=== PATIENT | male | born 1950 | race Caucasian/White ===

== ENCOUNTER 2023-08-20 10:38 | Observation (INO) ==
--- NOTE | 2023-08-05 10:03 | PAT Medication Instructions ---
Medication Instructions Date of Service August 05, 2023 Home Medications acetaminophen 650 mg tablet,extended release 650 mg PO Q8H aspirin 81 mg capsule 81 mg PO HS carbidopa 50 mg-levodopa 200 mg-entacapone 200 mg tablet 1 tab PO TID cholecalciferol (vitamin D3) 25 mcg (1,000 unit) capsule (Vitamin D3) 25 mcg PO HS diclofenac sodium 75 mg tablet,delayed release 75 mg PO BID finasteride 5 mg tablet 5 mg PO QAM gabapentin 300 mg capsule 300 mg PO BID loratadine 10 mg capsule 10 mg PO DAILY PRN Allergy Symptoms metformin 500 mg tablet 500 mg PO BID metoprolol succinate 25 mg tablet,extended release 24 hr 25 mg PO QAM multivitamin with minerals-folic acid 400 mcg-lycopene 370 mcg tablet (One-A-Day Men's 50 Plus) 1 tab PO QAM rosuvastatin 10 mg tablet 10 mg PO HS tamsulosin 0.4 mg capsule 0.4 mg PO QAM ASK your surgeon for instructions diclofenac sodium 75 mg tablet,delayed release 75 mg PO BID DO NOT take the morning of surgery loratadine 10 mg capsule 10 mg PO DAILY PRN Allergy Symptoms metformin 500 mg tablet 500 mg PO BID multivitamin with minerals-folic acid 400 mcg-lycopene 370 mcg tablet (One-A-Day Men's 50 Plus) 1 tab PO QAM Take morning of surgery With a small sip of water, OTHERWISE NOTHING TO EAT OR DRINK AFTER MIDNIGHT: acetaminophen 650 mg tablet,extended release 650 mg PO Q8H carbidopa 50 mg-levodopa 200 mg-entacapone 200 mg tablet 1 tab PO TID finasteride 5 mg tablet 5 mg PO QAM gabapentin 300 mg capsule 300 mg PO BID metoprolol succinate 25 mg tablet,extended release 24 hr 25 mg PO QAM tamsulosin 0.4 mg capsule 0.4 mg PO QAM Take evening before surgery acetaminophen 650 mg tablet,extended release 650 mg PO Q8H aspirin 81 mg capsule 81 mg PO HS carbidopa 50 mg-levodopa 200 mg-entacapone 200 mg tablet 1 tab PO TID cholecalciferol (vitamin D3) 25 mcg (1,000 unit) capsule (Vitamin D3) 25 mcg PO HS gabapentin 300 mg capsule 300 mg PO BID loratadine 10 mg capsule 10 mg PO DAILY PRN Allergy Symptoms (if needed) metformin 500 mg tablet 500 mg PO BID rosuvastatin 10 mg tablet 10 mg PO HS Other Notes If you have any questions please call us at [phone] or [phone] or [phone] or [phone]
--- NOTE | 2023-08-06 12:45 | Anesthesiology Consultation ---
Date of Service August 06, 2023 Assessment & Plan (1) Encounter for pre-operative examination: - Check BSG AM DOS - Infectious disease screening: Per assessment on 08/06/23: No known infectious disease contacts or current infectious disease symptoms. No noted Covid positive test result in past 90 days. - Outpatient joint assessment: Pt currently scheduled for inpatient pathway. If surgeon requests review for outpatient joint pathway, patient is not recommended candidate for outpatient joint program from anesthesia standpoint. Chart Review Chart Review: Acceptable Risk for Surgery and Patient seen in Pre Admission Testing Teaching & Discussion Pre-Anesthesia Teaching/Discussion Notes: Instructed NPO after midnight before surgery,except medications with 15 cc of water. Medication instructions provided according to the PAT guidelines. History Surgery Operation Date: 08/20/23 08:50 Proposed Procedures p Left Total Knee Arthroplasty - Casimiro Mccarthy MD Height/Weight Height: 5 ft 6 in Weight: 104.1 kg Allergies Allergy/AdvReac Type Severity Reaction Status Date / Time ciprofloxacin Allergy Intermediate Aches, Verified 08/05/23 12:01 "cannot stand" lisinopril Allergy Mild rash and Verified 07/30/23 08:35 cough propranolol Allergy Mild rash and Verified 07/30/23 08:35 cough Medications Home Medications Medication Instructions Recorded Confirmed Last Taken acetaminophen 650 mg 650 mg PO Q8H 07/19/23 07/30/23 Unknown tablet,extended release aspirin 81 mg capsule 81 mg PO HS 07/19/23 07/30/23 Unknown carbidopa 50 mg-levodopa 200 1 tab PO TID 07/19/23 07/30/23 Unknown mg-entacapone 200 mg tablet cholecalciferol (vitamin D3) 25 25 mcg PO HS 07/19/23 07/30/23 Unknown mcg (1,000 unit) capsule (Vitamin D3) diclofenac sodium 75 mg 75 mg PO BID 07/19/23 07/30/23 Unknown tablet,delayed release finasteride 5 mg tablet 5 mg PO QAM 07/19/23 07/30/23 Unknown gabapentin 300 mg capsule 300 mg PO BID 07/19/23 07/30/23 Unknown lancing device with lancets kit 07/19/23 07/19/23 Unknown loratadine 10 mg capsule 10 mg PO DAILY PRN Allergy Symptoms 07/19/23 07/30/23 Unknown metformin 500 mg tablet 500 mg PO BID 07/19/23 07/30/23 Unknown metoprolol succinate 25 mg 25 mg PO QAM 07/19/23 07/30/23 Unknown tablet,extended release 24 hr multivitamin with minerals-folic 1 tab PO QAM 07/19/23 07/30/23 Unknown acid 400 mcg-lycopene 370 mcg tablet (One-A-Day Men's 50 Plus) rosuvastatin 10 mg tablet 10 mg PO HS 07/19/23 07/30/23 Unknown tamsulosin 0.4 mg capsule 0.4 mg PO QAM 07/19/23 07/30/23 Unknown Past Medical History Medical History (Updated 08/06/23 @ 12:59 by Tana Falcon) BPH (benign prostatic hyperplasia) Degenerative arthritis of knee, bilateral Diabetes mellitus, type 2 Diverticular disease History of kidney stones Hyperlipidemia Hypertension Parkinson disease Sleep apnea CPAP (compliant) Exercise / Class Metabolic Activity III < 4 Walking/Shop/Light housework (uses walker) Past Family History Family History (Updated 07/30/23 @ 08:48 by Shu Pugh, MENA) Other No family history of adverse response to anesthesia Past Surgical History Surgical History (Updated 07/30/23 @ 08:47 by Shu Pugh, MENA) History of colon resection 2010--13 inches removed due to diverticular disease/with umbilical hernia re pair @ [facility] History of colonoscopy History of left inguinal hernia repair History of lithotripsy x4 History of prostate biopsy History of tonsillectomy History of tooth extraction History of wisdom tooth extraction Status post cystoscopy with ureteral stent placement Past Anesthesia History No Hx of Anesthesia Complications and No Family Hx of Anesthesia Complications History of PONV No Hx of PONV and No Hx of Motion Sickness Social History Smoking Status: Former smoker Do You Dip or Chew Tobacco: No Smoking End Date: Quit 40 years ago Hx Alcohol Use: No Hx Substance Use: No substance use type: does not use Review of Systems Patient denies chest pain, shortness of breath, fever, chills, cough, wheezing, palpitations. Physical Exam Vital Signs VITALS BP 154/82 P 73 TEMP 98.0 SP02 97%RA RESP 18 PHYSICAL Mildly decreased cervical extension range of motion. Full TMJ range of motion. TMD 4 finger breaths Mallampati Score 2 Dentition: missing sides/molars Lungs: clear throughout to auscultation Cardiac: regular rate and rhythm, no murmurs noted Spine: normal Carotid arteries: negative bruit Extremities: no LE edema Lab Results Anesthesia Preop Results Results Anesthesia Widget: WBC 7.42 K/ul (4.8-10.8) 08/06/23 Hgb 13.8 g/dl (14.0-18.0) L 08/06/23 Hct 39.8 % (42.0-52.0) L 08/06/23 Plt 277 K/uL (130-400) 08/06/23 PT 10.9 Seconds (9.0-12.0) 08/06/23 PTT 25.6 Seconds (21.0-31.0) 08/06/23 INR 1.0 (0.9-1.1) 08/06/23 Blood Type A Positive 08/06/23 Antibody Screen NEGATIVE 08/06/23 Testing Laboratory Results 07/01/23 SODIUM 138 POTASSIUM 4.2 CHLORIDE 101 CO2 27 BUN 21 CREATININE 1.3 GLUCOSE 106 HGBA1C 6.3% Electrocardiogram Date: 08/06/23 NSR at 68bpm. LAFB. Chest X-Ray Date: 08/06/23 FINDINGS: No lines and tubes are seen. Calcified aortic knob is seen. The lungs are clear. No evidence of pleural effusion or pneumothorax. IMPRESSION: No acute chest disease.
--- NOTE | 2023-08-17 11:45 | History & Physical Report ---
Date of Service August 17, 2023 Assessment & Plan (1) Degenerative arthritis of knee, bilateral: 73-year-old gentleman with multiple medical comorbidities including diabetes, elevated cholesterol, Parkinson's disease with advanced left knee DJD. He is got severe deformity to his knee. Is got a point where he can hardly walk. He has failed conservative measures. He like to proceed with knee replacement. Plan: We discussed treatment options. He would like to have his knee replaced. Certainly there is nothing else that can help this gentleman. He certainly has several comorbidities but the only way to get him up walking again is replacement surgery. He like to proceed. The risks and benefits of total knee replacement were explained and he understands. We will proceed along that course. Will need to use a stem in his tibia as well as augments medially. He is planning on being discharged to go home with his 's assistance. He will use a home health program. Will use aspirin for DVT prophylaxis. History of Present Illness Chief Complaint: . Left knee pain discomfort and limited ambulatory ability. Primary Care Provider: NO PCP . Patient is 73-year-old gentleman from [place] who presents for surgical treatment of his left knee. He has several year history of increasing left knee pain discomfort and deformity that is gotten markedly worse over time. He is got to the point where he can hardly even walk. He is got global pain. Is been using a walker for the past year. He seen Dr. Titus over [facility] area had an injection which did not help at all. He wears a brace with minimal relief. He is having difficulty walking due to the pain discomfort stiffness and instability. He would like to have this knee fixed. Allergies Allergy/AdvReac Type Severity Reaction Status Date / Time ciprofloxacin Allergy Intermediate Aches, Verified 08/05/23 12:01 "cannot stand" lisinopril Allergy Mild rash and Verified 07/30/23 08:35 cough propranolol Allergy Mild rash and Verified 07/30/23 08:35 cough Home Medications Medication Instructions Recorded Confirmed Type acetaminophen 650 mg 650 mg PO Q8H 07/19/23 07/30/23 History tablet,extended release aspirin 81 mg capsule 81 mg PO HS 07/19/23 07/30/23 History carbidopa 50 mg-levodopa 200 1 tab PO TID 07/19/23 07/30/23 History mg-entacapone 200 mg tablet cholecalciferol (vitamin D3) 25 25 mcg PO HS 07/19/23 07/30/23 History mcg (1,000 unit) capsule (Vitamin D3) diclofenac sodium 75 mg 75 mg PO BID 07/19/23 07/30/23 History tablet,delayed release finasteride 5 mg tablet 5 mg PO QAM 07/19/23 07/30/23 History gabapentin 300 mg capsule 300 mg PO BID 07/19/23 07/30/23 History lancing device with lancets kit 07/19/23 07/19/23 History loratadine 10 mg capsule 10 mg PO DAILY PRN Allergy Symptoms 07/19/23 07/30/23 History metformin 500 mg tablet 500 mg PO BID 07/19/23 07/30/23 History metoprolol succinate 25 mg 25 mg PO QAM 07/19/23 07/30/23 History tablet,extended release 24 hr multivitamin with minerals-folic 1 tab PO QAM 07/19/23 07/30/23 History acid 400 mcg-lycopene 370 mcg tablet (One-A-Day Men's 50 Plus) rosuvastatin 10 mg tablet 10 mg PO HS 07/19/23 07/30/23 History tamsulosin 0.4 mg capsule 0.4 mg PO QAM 07/19/23 07/30/23 History Past Med/Surg History Medical History BPH (benign prostatic hyperplasia) Degenerative arthritis of knee, bilateral Diabetes mellitus, type 2 Diverticular disease History of kidney stones Hyperlipidemia Hypertension Parkinson disease Sleep apnea CPAP (compliant) Surgical History History of colon resection 2010--13 inches removed due to diverticular disease/with umbilical hernia repair @ [facility] History of colonoscopy History of left inguinal hernia repair History of lithotripsy x4 History of prostate biopsy History of tonsillectomy History of tooth extraction History of wisdom tooth extraction Status post cystoscopy with ureteral stent placement Family History Other No family history of adverse response to anesthesia Social History Smoking Status: Former smoker Tobacco Type: Cigarettes Second Hand Exposure: No; Do You Dip or Chew Tobacco: No; Hx Alcohol Use: No Hx Substance Use: No Preferred Language: Hungarian Communication Ability: Effective Beautician Apprentice Required: No Beliefs That Will Affect Care: None Current Living Situation: Spouse Feels Safe at Home: Yes Assistive Devices: CPAP, Glasses and Walker Review of Systems All systems reviewed & are unremarkable except as noted in HPI & below. Physical Exam . Physical examination reveals a pleasant elderly male. Comes in in a wheelchair. Examination left knee reveals marked varus alignment to his knee. He has difficulty walking to all even with a walker. Days got tenderness over the medial joint line. His knee collapses into varus with weightbearing. Small knee effusion. Got a pretty stiff knee with about a 10 degree flexion contracture and only bend about 90 to 95 degrees. There is no gross otherwise instability. No particular pain with hip motion. Constitutional WD/WN, vitals as above Neck trachea midline, no thyromegaly Respiratory normal respiratory effort, lungs clear to auscultation Cardiovascular RRR, no murmur, no edema Gastrointestinal (Abdomen) normal bowel sounds, soft, nontender, no hepatosplenomegaly Results & Data Results & Data Laboratory Results . Diagnostic Findings . X-rays left knee were reviewed. Shows advanced left knee medial compartment DJD. Is got complete loss of medial joint space. Is got destruction of the med ial tibial plateau about a centimeter a centimeter and a half. PG Care Time/CCT Total # of Minutes Spent Total Time Spent with Patient: Total time spent is greater than 50% in coordination of care (as documented) at patient's floor/unit and/or counseling patient: Coding Level of Care Code None Diagnoses Degenerative arthritis of knee, bilateral M17.0
[~2023-08-20 10:38] MED LIST: ACETAMINOPHEN 500 MG TAB PO SCH; BUPIVACAINE 0.5 % 5 MG/1 ML PF 10ML VIAL ONE; BUPIVACAINE LIPOSOME/PF 266 MG, BUPIVACAINE/EPINEPHRINE 50 ML, SODIUM CHLORIDE 0.9% PF ... INFIL SCH; CeleBREX 200 MG CAP PO SCH; FAMOTIDINE 20 MG TAB PO SCH; LR 500ML BOLUS, THEN 15ML/HR IV SCH; LR 60ML/HR IV SCH; METOCLOPRAMIDE HCL 10 MG TABLET PO SCH; ROPIVACAINE 0.5% 5 MG/ML 30 ML VIAL ONE; TRANEXAMIC ACID / 0.7% NACL 1,000 MG/100 ML BAG IV SCH; ceFAZolin 2000MG 2,000 MG/15 ML SYR IV SCH
--- NOTE | 2023-08-20 11:04 | History & Physical Bridge Note ---
Date of Service August 20, 2023 History & Physical Bridge Note I have examined the patient, reviewed the History & Physical and in the interval since the performance of the History & Physical I have noted the following changes of clinical significance: no changes noted
[2023-08-20] MEDS ORDERED: DEXAMETHASONE SOD INJ 4 MG/ML VIAL IV STA (11:22)
[2023-08-20] MEDS ORDERED: dexAMETHasone 8 MG in SYRINGE 0 ML IV ONE (11:30)
[2023-08-20] MEDS ORDERED: MIDAZOLAM HCL 1 MG/ML 2ML VIAL ONE (12:11)
[2023-08-20] MEDS ORDERED: PROPOFOL IV EMULSION 10 MG/ML 20 ML VIAL IV ONE ×2 (12:12→15:05)
[2023-08-20] MEDS ORDERED: BUPIVACAINE/EPINEPHRINE 0.25% 1:200,000 30 ML VIAL ONE (13:18)
[2023-08-20] MEDS ORDERED: VANCOMYCIN HCL 1000MG/20ML VIAL ONE (13:18)
[2023-08-20] MEDS ORDERED: SODIUM CHLORIDE 0.9% PF 50 ML VIAL ONE (13:19)
[2023-08-20] MEDS ORDERED: BUPIVACAINE LIPOSOME 1.3% 266 MG/20 ML VIAL ONE (13:19)
[2023-08-20] MEDS ORDERED: ePHEDrine sulfate 50 MG/ML AMP ONE (13:46)
[2023-08-20] MEDS ORDERED: ATROPINE SULFATE 0.1 MG/ML 10ML SYR IV PRN (13:48)
[2023-08-20] MEDS ORDERED: fentaNYL citrate PF 100 MCG/2 ML VIAL IV PRN (13:48)
[2023-08-20] MEDS ORDERED: ePHEDrine sulfate 50 MG/ML AMP IV PRN (13:48)
[2023-08-20] MEDS ORDERED: ONDANSETRON INJ 2 MG/ML 2 ML VIAL ONE (14:10)
[2023-08-20] MEDS ORDERED: PHENYLEPHRINE HCL 10 MG/ML VIAL ONE ×2 (14:17→14:18)
--- NOTE | 2023-08-20 15:48 | Operative Report ---
PG Post Operative Report Pre & Post Diagnosis Operation Date: 08/20/23 12:30 Pre-Op Diagnosis: Left knee degenerative joint disease Post-Op Diagnosis: Left knee degenerative joint disease I identified the patient and participated in the time-out.: Yes Procedure Operation Date: 08/20/23 12:30 Actual Procedures p Left Total Knee Arthroplasty(Left) - Casimiro Mccarthy MD Surgeon Casimiro Mccarthy MD [employer] Farmworker Garrett Jiménez PA-C Estimated Blood Loss 100 Findings Consistent with Post-Op Diagnosis Operative findings were advanced left knee DJD. He had grade 4 [id number] disease in all 3 compartments most severe medially. He had a large bony defect anterior medially about 15 mm. He had erosive changes in the medial femoral condyle and medial tibial plateau. Fixed varus deformity to his knee and a flex ion contracture. Moderate-sized joint effusion. Specimens Left knee sent for pathology Anesthesia Type Spinal MAC Complications none Disposition Accompanied Patient To Recovery: No Indications Patient 73-year-old gent with multiple medical comorbidities as several year history of increasing left knee pain discomfort deformity of the point where he could not even walk. He has a sense almost wheelchair-bound. X-rays show severe left knee DJD with a very large bone loss anterior medially. Treatment options were explained and he elects he with surgical management. Description of Procedure Operative implants consist of: 1 Biomet Vanguard size 67.5 left posterior stabilized femoral component. 2. Biomet Vanguard III 60 tibial implant with a 75 mm tray, 80 x 15 mm stem with a 5 mm offset and a small cruciate wing. 3. 14 mm PS plus polyethylene insert. 4. 31 x 8 all poly patella. The patient was taken the operating, identified, placed on the operating table supine position but all contractors were appropriately padded. IV antibiotics were provided by the anesthesia team. A spinal anesthetic and adductor canal block had been provided in the holding area. A left thigh turn was then placed. Left lower extremities then prepped and draped in usual sterile fashion. The left leg was elevated exsanguinated with use of an Esmarch and the turn was placed at 300 mmHg. An anterior approach left knee was then performed to longitudinal incision centered over the patella. Sharp dissection was carried through subcutaneous tissues down the extensor mechanism. A medial parapatellar arthrotomy incision was made. Some subperiosteal dissection was carried out medially. I did extensive dissection medially and posterior medially to have r eleases medial side. The fat pad was resected from Neath patella tendon. The lateral patellofemoral ligament was released and the patella was subluxated laterally and the knee was flexed. The osteophyte and the ACL and PCL were taken off the intercondylar notch area. The tibia subluxated anteriorly. The tibial eminence was resected. I then reamed up to a size 15. The reamer was left in place. The IM cutting guide was placed and the tibial cut was made to take about 10 mm off the most cartilaginous portion of the medial side. This cut just above the base of the anterior defect medially. Took a fairly large piece off laterally. The tibia was then sized to a size 75. I then prepared the tibia for a 15 mm offset stem with a fives offset and a small cruciate wing. The tibia was assembled and fit nicely in the tibia. Attention drawn the femur. The distal femur during the sharp drop with intramedullary canal was suction. A left 5 degree valgus cutting guide was placed. The distal femoral cutting block was pinned in place. Distal femoral cut was made to take an additional 3 mm bone off distal femur. The femur was then sized to a size 67.5. The AP cutting block was pinned parallel to the epicondylar axis which was 5 degrees of external rotation. The anterior cut, anterior chamfer, posterior cut, posterior chamfer cuts were made. The box cutting guide was placed in just slight lateral box cut was made. The knee was flexed. The remnants of the medial and lateral menisci were excised. The osteophytes taken off the posterior aspect the femur. A trial femoral component was placed. I then trialed the knee with and the 14 mm insert fit most appropriately. There was still a little bit of laxity laterally so I elected to place a PS plus insert. Attention drawn the patella. The patella was cleaned of all soft tissues. Patella thickness measured 20 mm in thickness was cut down to 13. Sized to a size 31 patella. The lug holes were drilled for 31 patella. Lateral osteophytes removed. Patella button was placed. Knee was taken through range of motion patella tracked nicely with no thumbs test. Attention drawn to place the permanent components. All trial components were removed. A bone plug was placed in the distal femur to limit blood loss. A double batch Palacos G cement was mixed. I added 2 additional grams of vancomycin due to this patient's multiple medical comorbidities and the extensiveness of the surgery. A Biomet Vanguard size 67.5 left posterior stabilized femoral component along with a size 75 tibial tray with an 80 x 15 mm offset stem extension and a small cruciate wing followed by a 14 mm posterior stabilized polyethylene plus insert and a 31 x 8 all poly patella then cemented in place. Knee was brought out in full extension till cement hardened. Final cement check was then performed. The pericapsular tissues were injected with total of 100 cc of combination of 20 of Exparel, 30 cc normal saline, 50 cc of quarter percent Marcaine with epinephrine. Patient did receive 1 g tranexamic acid. The tourniquet was then let down for final tourniquet time of 79 minutes. Hemostasis assured use electrocautery. Extensor mechanism then closed with combination 1 PDS suture #1 Vicryl suture in a [id number] fashion. Extensor mechanism checked found to be intact and subcutaneous tissues then closed with 2 Dexon suture in a buried interrupted fashion skin was closed skin ginette. Leg was then cleaned and dried and sterile dressed with Xeroform, 4 fours, sterile cast padding, ABD pad, Gianluca bandage were applied. The patient was then transferred to the recovery room in stable condition. Patient tolerated procedure well and there were no complications. Garrett Jiménez, my physician assistant to the ceo, was present for the entire procedure. His assistance was essential and required for appropriate patient positioning, prepping and draping, surgical exposure, performing the technical details of the operation, placement the implants, closure of the wound, and placement of the sterile bandage. I attest to the content of the Intraoperative Record and any orders documented therein. Any exceptions are noted below.
--- NOTE | 2023-08-20 16:36 | Anesthesiology Progress Note ---
Date of Service August 20, 2023 Anesthesia Post Procedure Vital Signs Vital Signs: Temp Pulse Pulse Resp BP Pulse Ox O2 Del Method 08/20/23 16:30 94 H 20 131/80 97 Nasal Cannula 08/20/23 16:10 89 20 129/71 93 Nasal Cannula 08/20/23 16:00 90 12 115/70 94 Oxymask 08/20/23 16:20 91 H 15 128/71 96 Nasal Cannula 08/20/23 15:50 99 H 17 98/60 L 93 Oxymask 08/20/23 15:46 36.5 C 96 H 13 100/64 94 Oxymask 08/20/23 11:26 36.5 C 70 22 150/85 H 95 Room Air O2 Flow Rate 08/20/23 16:30 2 08/20/23 16:10 2 08/20/23 16:00 3 08/20/23 16:20 2 08/20/23 15:50 6 08/20/23 15:46 6 08/20/23 11:26 Pain Intensity Left Leg: Pain Intensity: 7 Transfer of Care Handoff Completed per policy Notes Mental Status: alert / awake / arousable and participated in evaluation Nausea / Vomiting: adequately controlled Pain: adequately controlled Airway Patency, RR, SpO2: stable & adequate BP & HR: stable & adequate Hydration State: stable & adequate Neuraxial Anesthesia: was administered and sensory block is resolving Anesthetic Complications: no major complications apparent and Pt Satisfied with anesthetic care
--- NOTE | 2023-08-20 16:45 | XRay Report ---
TWO VIEWS LEFT KNEE CLINICAL HISTORY: Postoperative examination. FINDINGS: AP and crosstable lateral portable views of the left knee are obtained. A left knee arthrop lasty is in near anatomic alignment. There is a long tibial stem. There has been undersurface remodel ing of the patella. No acute fracture is seen. There are expected postoperative changes around the kn ee including skin clips, soft tissue edema, and subcutaneous gas. IMPRESSION: Expected postoperative changes status post left knee arthroplasty. No acute fracture is s een. ACT 112: Negative or not required by law. Electronically signed by: Aditya Siddiqui M.D. 08/20/2023 4:43 PM
[2023-08-20] MEDS ORDERED: CARBOHYDRATES FOR HYPOGLYCEMIA PO PRN (17:49)
[2023-08-20] MEDS ORDERED: bisacodyL 10 MG SUPP PR PRN (17:49)
[2023-08-20] MEDS ORDERED: ONDANSETRON INJ 2 MG/ML 2 ML VIAL IV PRN (17:49)
[2023-08-20] MEDS ORDERED: GLUCOSE 40% GEL 15 GM TUBE PO PRN (17:49)
[2023-08-20] MEDS ORDERED: SODIUM CHLORIDE 0.9% 1,000 ML IV SCH (17:49)
[2023-08-20] MEDS ORDERED: GLUCOSE 10 TAB/TUBE PO PRN (17:49)
[2023-08-20] MEDS ORDERED: ALUMINUM/MAGNESIUM SUSP 30 ML UDC PO PRN (17:49)
[2023-08-20] MEDS ORDERED: NALOXONE HCL 0.4 MG/1 ML VIAL/CARP IV PRN (17:49)
[2023-08-20] MEDS ORDERED: PHARMACY GLYCEMIC MGMT CONSULT PRN (17:49)
[2023-08-20] MEDS ORDERED: HYDROmorphone INJ 0.5 MG/0.5 ML SYR IV PRN (17:49)
[2023-08-20] MEDS ORDERED: GLUCAGON FOR INJ 1 MG VIAL SQ PRN (17:49)
[2023-08-20] MEDS ORDERED: LORATADINE 10 MG TAB PO PRN (17:49)
[2023-08-20] MEDS ORDERED: METOCLOPRAMIDE HCL INJ 5 MG/ML 2 ML VIAL IV PRN (17:49)
[2023-08-20] MEDS ORDERED: oxyCODONE HCL IR 5 MG TAB (IMMEDIATE RELEASE) PO PRN (17:49)
[2023-08-20] MEDS ORDERED: DEXTROSE 50% 50 ML SYRINGE IV PRN (17:49)
[2023-08-20] MEDS ORDERED: MAGNESIUM HYDROXIDE SUSP 30 ML UDC PO PRN (17:49)
[2023-08-20] MEDS: CARBIDOPA/LEVODOPA 50/200MG EXT REL TAB PO SCH ×2 (18:16→21:11)
[2023-08-20] MEDS: ENTACAPONE 200 MG TAB PO SCH ×2 (18:17→21:01)
[2023-08-20] MEDS ORDERED: KETOROLAC 30 MG/ML VIAL ONE (18:22)
[2023-08-20] MEDS: ACETAMINOPHEN 500 MG TAB PO SCH ×2 (18:24→21:10)
[2023-08-20] MEDS: KETOROLAC TROMETHAMINE 15 MG/ML VIAL IV SCH ×3 (18:25→23:52)
[2023-08-20] MEDS ORDERED: CHOLECALCIFEROL 1,000 UNITS 25 MCG TAB PO SCH (21:00)
[2023-08-20] MEDS ORDERED: SENNA 8.6 MG TAB PO SCH (21:00)
[2023-08-20] MEDS ORDERED: LANTUS PER UNIT CHARGE SC ONE (21:00)
[2023-08-20] MEDS ORDERED: ROSUVASTATIN CALCIUM 10 MG TAB PO SCH (21:00)
[2023-08-20] MEDS: ASCORBIC ACID 500 MG TAB PO SCH (21:16)
[2023-08-20] MEDS: SENNA 8.6 MG TAB PO SCH (21:16)
[2023-08-20] MEDS: ASPIRIN 81 MG ECTAB PO SCH (21:16)
[2023-08-20] MEDS: GABAPENTIN 300 MG CAP PO SCH (21:16)
[2023-08-20] MEDS: DOCUSATE SODIUM 100 MG CAP PO SCH (21:16)
[2023-08-20] MEDS: INSULIN ASPART PER UNIT CHARGE SC SCH (21:19)
[2023-08-20] MEDS: ceFAZolin 2000MG 2,000 MG/15 ML SYR IV SCH (21:25)
[2023-08-20] MEDS ORDERED: TRANEXAMIC ACID / 0.7% NACL 1,000 MG/100 ML BAG IV SCH (21:45)
[2023-08-21] MEDS ORDERED: INSULIN ASPART PER UNIT CHARGE SC ONE (04:00)
[2023-08-21] MEDS: KETOROLAC TROMETHAMINE 15 MG/ML VIAL IV SCH ×2 (05:07→12:37)
[2023-08-21] MEDS: ceFAZolin 2000MG 2,000 MG/15 ML SYR IV SCH (05:07)
[2023-08-21] MEDS ORDERED: dexAMETHasone 4 MG TAB PO SCH (08:00)
[2023-08-21 08:09] LABS: Hematocrit (blood only) 33.1 % (42.0-52.0); Hemoglobin 11.4 g/dl (14.0-18.0); Mean Corpuscular Hemoglobin 31.7 pg (25.0-34.0); Mean Corpuscular Hgb Conc 34.4 g/dL (32.0-36.0); Mean Corpuscular Volume 91.9 fL (80.0-100.0); Mean Platelet Volume 9.5 fL (9.4-12.4); Platelet Count 252 K/uL (130-400); RDW Coefficient of Variation 13.2 % (11.5-14.5); RDW Standard Deviation 44.7 fL (36.4-46.3)
[2023-08-21] MEDS ORDERED: metFORMIN HCL 500 MG TAB PO SCH (08:30)
[2023-08-21 08:34] LABS: Estimated Average Glucose 131 mg/dl; Hemoglobin A1C 6.2 % (4.5-5.6)
[2023-08-21 08:35] LABS: BUN Creatinine Ratio 20.5 (10-20); Calcium 8.8 mg/dl (8.6-10.3); Creatinine Clr Calc Pharmacy 61.5 ml/min; Est GFR (African American) 70.3 ml/min; Est GFR (Non-African American) 60.6 ml/min; Potassium 4.2 mmol/L (3.5-5.1)
[2023-08-21] MEDS: INSULIN ASPART PER UNIT CHARGE SC SCH ×2 (08:43→12:35)
[2023-08-21] MEDS: ASCORBIC ACID 500 MG TAB PO SCH (08:45)
[2023-08-21] MEDS: ACETAMINOPHEN 500 MG TAB PO SCH ×2 (08:46→13:50)
[2023-08-21] MEDS: ASPIRIN 81 MG ECTAB PO SCH (08:47)
[2023-08-21] MEDS: DOCUSATE SODIUM 100 MG CAP PO SCH (08:48)
[2023-08-21] MEDS: GABAPENTIN 300 MG CAP PO SCH (08:49)
[2023-08-21] MEDS: SENNA 8.6 MG TAB PO SCH (08:50)
[2023-08-21] MEDS ORDERED: MULTIVITAMIN TAB PO SCH (09:00)
[2023-08-21] MEDS ORDERED: MULTIVIT WITH MIN FA LYCOPENE PO SCH (09:00)
[2023-08-21] MEDS ORDERED: [UNRECOGNIZED DRUG - OTHER] PO SCH (09:00)
[2023-08-21] MEDS ORDERED: TAMSULOSIN HCL 0.4 MG CAP PO SCH ×2 (09:00)
[2023-08-21] MEDS ORDERED: METOPROLOL SUCC 25MG EXT REL TAB PO SCH (09:00)
[2023-08-21] MEDS ORDERED: FINASTERIDE 5 MG TAB PO SCH (09:00)
[2023-08-21] MEDS: CARBIDOPA/LEVODOPA 50/200MG EXT REL TAB PO SCH ×2 (10:16→13:49)
[2023-08-21] MEDS: ENTACAPONE 200 MG TAB PO SCH ×2 (10:16→13:50)
--- NOTE | 2023-08-21 13:17 | Surgery Progress Note ---
Date of Service August 21, 2023 Assessment & Plan (1) Status post left knee replacement: Plan: 73-year-old gentleman postop day 1 from left knee replacement doing quite well. Functionally is doing better than he did before surgery. His pain is controlled. He is neurologically intact he is open to go home. Plan: 1. DVT prophylaxis including thigh-high teds, SCDs, aspirin twice a day. 2. PT OT. Weight-bear as tolerated left total knee protocol. 3. Pain control doing okay with current pain regimen. 4. Disposition plan to discharge to home with some home health today. Admission and Anticipated Discharge Date Admission Date: August 20, 2023 Subjective 73-year-old gentleman with underlying Parkinson's he is postop day 1 from a left knee replacement. He is doing quite well. He is having some pain but manageable. He says he is walking better than he did before surgery. Denies any chest pain or shortness of breath. He is open to go home. Physical Exam Physical Exam: Physical exam shows a pleasant middle-age male. He is sitting up in his bedside looks reasonably comfortable. Examination left leg reveals the dressing clean dry and intact he can dorsiflex and plantarflex his foot appropriately. He is neurologically intact. Brisk refill. Respiratory: normal respiratory effort, lungs clear to auscultation Cardiovascular: RRR, no murmur, no edema Gastrointestinal (Abdomen): normal bowel sounds, soft, nontender, no hepatosplenomegaly Results & Data Vital Signs (Past 12 Hours) Vital Signs Temp Pulse Resp BP BP Pulse Ox O2 Del Method 08/21/23 10:58 36.5 C 75 16 130/65 95 Room Air 08/21/23 10:21 CPAP 08/21/23 07:26 36.3 C L 79 16 138/78 95 Room Air 08/21/23 03:28 36.9 C 81 18 120/73 92 BiPAP Laboratory Results Hemoglobin is 11.4. Hematocrit is 33.1. Electrolytes are stable. PG Care Time/CCT Total # of Minutes Spent Total Time Spent with Patient: Total time spent is greater than 50% in coordination of care (as documented) at patient's floor/unit and/or counseling patient: Coding Level of Care Code None Diagnoses Status post left knee replacement Z96.652
--- NOTE | 2023-08-25 14:19 | Discharge Summary ---
Date of Service August 25, 2023 Discharge Data Procedures Performed Operation Date: 08/20/23 12:30 Actual Procedures p Left Total Knee Arthroplasty(Left) - Casimiro Mccarthy MD Hospital Course (1) Status post left knee replacement: This is a 73 year old patient admitted on 08/20/23 and underwent total knee arthroplasty. He tolerated the procedure well and there were no complications. Transferred to the PACU post op and later to the orthopedic floor for further care. He was given ancef for antibiotic prophylaxis. He was also given JB stockings, SCDs, and aspirin for DVT prophylaxis. Hemoglobin, hematocrit, and vital signs were monitored during his hospital stay and remained stable. Did not require any blood transfusions. There were no complications during his hospital stay. By post op day #1 the patient was tolerating a diabetic diet, pain was reasonably controlled with oral pain medicine, and he was participating in physical therapy. On post op day #1 the patient was discharged home and set up with home health care. He was given printed discharge instructions including prescriptions for extra strength tylenol, aspirin, cefadroxil, zofran, senokot, oxycodone, and flomax. Continue physical therapy, weight bearing as tolerated. Continue JB stockings. Follow up approximately 2 weeks post op or sooner if there are problems or concerns. Coding Level of Care Code None Diagnoses Status post left knee replacement Z96.652
== END 2023-08-21 14:39 | disposition home health service (06) ==
LOC: 3N 10:38 → ASU 10:38